=== PATIENT | female | born 1965 | race Caucasian/White ===

== ENCOUNTER 2017-02-16 12:56 | Emergency (ER) | payer OTHER, MEDICAID ==
--- NOTE | 2017-02-16 13:20 | EDPHY ---
H & P Stated Complaint: hx ulcers/saw gi 2 days ago/pain not managed at home/us today at [facility] HPI/ROS: HPI CHIEF COMPLAINT: Burning epigastric abdominal pain HISTORY OF PRESENT ILLNESS: This patient very pleasant 51-year-old female she presents emergency room with 1 week of epigastric abdominal pain that radiates into her throat is burning sensation. She tells me the pain is extreme 10 in 10. She tells me she has a history of ulcers. Over the past week she has had multiple episodes of vomiting she does tell me that she vomited coffee-ground emesis 1 time. She is tells me she has had some dark stools. No black stools. She states she has had an EGD and colonoscopy in the past with polyp removed from her colon, also had an ulcer on her EGD. She is due to have a EGD and colonoscopy this Tuesday. Was told if she has ongoing worsening abdominal pain nausea vomiting she should go to the emergency room. She also tells me that she was out L and had an ultrasound of right upper quadrant and was told that was normal. She now presents emergency room with severe epigastric abdominal pain with associated nausea. She denies shortness of breath. Denies chest pain the pain radiates into her throat burning in sensation. Past Medical History: Gastric ulcers, chronic back pain, rheumatoid arthritis, pneumothorax, rib fracture Past Surgical History: Denies any recent surgical history however did have lumbar fusion Social History: Denies daily use drugs alcohol tobacco products Family History: Noncontributory ROS REVIEW OF SYSTEMS: A comprehensive 10 point review of systems is otherwise negative aside from elements mentioned in the history of present illness. Exam Constitutional triage nursing summary reviewed, vital signs reviewed, awake/ alert. Eyes normal conjunctivae and sclera, EOMI, PERRLA. HENT normal inspection, atraumatic, moist mucus membranes, no epistaxis, neck supple/ no meningismus, no raccoon eyes. Respiratory clear to auscultation bilaterally, normal breath sounds, no respiratory distress, no wheezing. Cardiovascular rate normal, regular rhythm, no murmur, no edema, distal pulses normal. Gastrointestinal tender palpation epigastric and right upper quadrant, no peritoneal signs Genitourinary no CVA tenderness. Musculoskeletal no midline vertebral tenderness, full range of motion, no calf swelling, no tenderness of extremities, no meningismus, good pulses, neurovascularly intact. Skin pink, warm, & dry, no rash, skin atraumatic. Neurologic awake, alert and oriented x 3, AAOx3, moves all 4 extremities equally, motor intact, sensory intact, CN II-XII intact, normal cerebellar, normal vision, normal speech. Psychiatric normal mood/affect. Heme/Lymph/Immune no lymphadenopathy. Differential diagnosis includes but is not limited to and in no particular order : Bowel obstruction, appendicitis, gallbladder disease, diverticulitis, colitis , enteritis, perforated viscus, gastritis, GERD, esophagitis, urinary tract infection, pyelonephritis, kidney stones Medical Decision Making: Plan for this patient IV establishment, EKG, chest x- ray, cardiac/vascular sonographer, check abdominal blood work including LFTs and lipase, IV morphine for pain control IV Zofran for nausea, GI cocktail. Check stool sample for blood. Re-evaluation: 1458: Ultrasound of the right upper quadrant. The results of the study are negative for acute abnormality. I discussed the results of this study with the radiologist Dr. Hernandez EKG interpretation by me on record in [employer] system. Impression since EKG 1508, this is sinus rhythm rate of 75, otherwise unremarkable EKG no acute ischemia. Specifically no ST elevation, ST depression T-wave abnormalities prolonged intervals. ED x-ray chest one view: Negative for acute cardiopulmonary disease. 1520: This patient tells me that she feels much better after GI cocktail and IV morphine. She has greatly improved. She is requesting to be discharged home. She states the burning pain in her chest up to her throat is resolved after the GI cocktail. I do clinically on exam feel this patient has a soft jaundice possible gastritis and ulcer. She is due to have an EGD and colonoscopy on Tuesday. I do recommend that she continues this follow-up appointment. She already is on omeprazole and Zantac. I will give her limited supply of [place] for pain control. She understands return emergency room she develops worsening abdominal pain, fever, vomiting. She has not had any vomiting here no black tarry stool. H&H are stable. Vital signs stable. Afebrile. Blood work, x-ray, ultrasound reviewed and normal. Nonischemic EKG normal troponin normal D-dimer. Source: Patient - Personal History LMP (Females 10-55): Hysterectomy Current Tetanus/Diphtheria Vaccine: Yes Tetanus Vaccine Date: 2008 - Medical/Surgical History Hx Asthma: No Hx Chronic Respiratory Disease: No Hx Diabetes: No Hx Cardiac Disease: No Hx Renal Disease: No Hx Cirrhosis: No Hx Alcoholism: No Hx HIV/AIDS: No Hx Splenectomy or Spleen Trauma: No Other PMH: hysterectomy/gback pain/ulcers/ra - Social History Smoking Status: Never smoked Constitutional: Initial Vital Signs Temperature (C) 36.8 C 02/16/17 13:04 Heart Rate 92 02/16/17 13:04 Respiratory Rate 18 02/16/17 13:04 Blood Pressure 122/81 H 02/16/17 13:04 O2 Sat (%) 95 02/16/17 13:04 O2 Delivery Mode Room Air Allergies/Adverse Reactions: sumatriptan [From Imitrex] Allergy (Severe, Verified 02/16/17 13:02) Other-Enter Comments Home Medications: Medication Instructions Recorded Diazepam [Valium] 10 mg PO 09/29/11 morphINE [Roxanol] 0 mg PO 09/29/11 oxyCODONE IR [Oxy Ir] 30 mg PO 09/29/11 GABAPENTIN 02/16/17 Omeprazole 02/16/17 Ranitidine HCl 02/16/17 Medical Decision Making - Diagnostics Imaging Results: Imaging Impressions Chest X-Ray 02/16/17 13:30 Impression: No acute abnormality. - Data Points Laboratory Results: Laboratory Results 02/16/17 13:35 02/16/17 13:35 02/16/17 02/16/17 02/16/17 13:35 13:35 13:35 WBC 9.37 10^3/uL 10^3/uL (3.80-9.50) RBC 4.96 10^6/uL 10^6/uL (4.18-5.33) Hgb 15.2 g/dL g/dL (12.6-16.3) Hct 44.2 % % (38.0-47.0) MCV 89.1 fL fL (81.5-99.8) MCH 30.6 pg pg (27.9-34.1) MCHC 34.4 g/dL g/dL (32.4-36.7) RDW 12.3 % % (11.5-15.2) Plt Count 228 10^3/uL 10^3/uL (150-400) MPV 10.6 fL fL (8.7-11.7) Neut % (Auto) 71.5 % % (39.3-74.2) Lymph % (Auto) 20.1 % % (15.0-45.0) [place] % (Auto) 7.6 % % (4.5-13.0) Eos % (Auto) 0.2 % L % (0.6-7.6) Baso % (Auto) 0.3 % % (0.3-1.7) Nucleat RBC Rel Count 0.0 % % (0.0-0.2) Absolute Neuts (auto) 6.70 10^3/uL H 10^3/uL (1.70-6.50) Absolute Lymphs (auto) 1.88 10^3/uL 10^3/uL (1.00-3.00) Absolute Monos (auto) 0.71 10^3/uL 10^3/uL (0.30-0.80) Absolute Eos (auto) 0.02 10^3/uL L 10^3/uL (0.03-0.40) Absolute Basos (auto) 0.03 10^3/uL 10^3/uL (0.02-0.10) Absolute Nucleated RBC 0.00 10^3/uL 10^3/uL (0-0.01) Immature Gran % 0.3 % % (0.0-1.1) Immature Gran # 0.03 10^3/uL 10^3/uL (0.00-0.10) PT 13.1 SEC SEC (12.0-15.0) INR 1.00 (0.83-1.16) APTT 33.8 SEC SEC (23.0-38.0) D-Dimer < 0.27 ug/mLFEU ug/mLFEU (0.00-0.50) VBG Lactic Acid Sodium 139 mEq/L mEq/L (134-144) Potassium 3.9 mEq/L mEq/L (3.5-5.2) Chloride 107 mEq/L mEq/L (97-110) Carbon Dioxide 22 mEq/l mEq/l (22-31) Anion Gap 10 mEq/L mEq/L (8-16) BUN 9 mg/dL mg/dL (7-23) Creatinine 0.7 mg/dL mg/dL (0.6-1.0) Estimated GFR > 60 Glucose 118 mg/dL H mg/dL (70-100) Calcium 9.5 mg/dL mg/dL (8.5-10.4) Total Bilirubin 0.8 mg/dL mg/dL (0.1-1.4) Conjugated Bilirubin 0.3 mg/dL mg/dL (0.0-0.5) Unconjugated Bilirubin 0.5 mg/dL mg/dL (0.0-1.1) AST 19 IU/L IU/L (14-46) ALT 31 IU/L IU/L (9-52) Alkaline Phosphatase 77 IU/L IU/L (38-126) Troponin I < 0.012 ng/mL ng/mL (0-0.034) Total Protein 6.7 g/dL g/dL (6.3-8.2) Albumin 4.3 g/dL g/dL (3.5-5.0) Lipase 45.0 IU/L IU/L (23-300) 02/16/17 13:35 WBC RBC Hgb Hct MCV MCH MCHC RDW Plt Count MPV Neut % (Auto) Lymph % (Auto) [place] % (Auto) Eos % (Auto) Baso % (Auto) Nucleat RBC Rel Count Absolute Neuts (auto) Absolute Lymphs (auto) Absolute Monos (auto) Absolute Eos (auto) Absolute Basos (auto) Absolute Nucleated RBC Immature Gran % Immature Gran # PT INR APTT D-Dimer VBG Lactic Acid 1.5 mmol/L mmol/L (0.7-2.1) Sodium Potassium Chloride Carbon Dioxide Anion Gap BUN Creatinine Estimated GFR Glucose Calcium Total Bilirubin Conjugated Bilirubin Unconjugated Bilirubin AST ALT Alkaline Phosphatase Troponin I Total Protein Albumin Lipase Medications Given: Discontinued Medications Al Hydroxide/Mg Hydroxide (Maalox Susp) 30 ml PO ONCE ONE Stop: 02/16/17 13:30 Last Admin: 02/16/17 13:47 Dose: 30 ml Hyoscyamine Sulfate (Levsin, Hyomax-Sl) 0.25 mg PO ONCE ONE Stop: 02/16/17 13:30 Last Admin: 02/16/17 13:47 Dose: 0.25 mg Sodium Chloride (Ns) 1,000 mls @ 0 mls/hr IV ONCE ONE; Wide Open PRN Reason: Protocol Stop: 02/16/17 13:30 Last Admin: 02/16/17 13:48 Dose: 1,000 mls Lidocaine (Lidocaine 2% Viscous) 15 ml PO ONCE ONE Stop: 02/16/17 13:30 Last Admin: 02/16/17 13:47 Dose: 15 ml Morphine Sulfate (Morphine) 6 mg IVP EDNOW ONE Stop: 02/16/17 13:30 Last Admin: 02/16/17 13:47 Dose: 6 mg Ondansetron HCl (Zofran) 4 mg IVP EDNOW ONE Stop: 02/16/17 13:30 Last Admin: 02/16/17 13:48 Dose: 4 mg Departure - Departure Disposition: Home, Routine, Self-Care Clinical Impression: Gastritis Qualifiers: Gastritis type: unspecified gastritis Chronicity: acute Gastritis bleeding: without bleeding Qualified Code(s): K29.00 - Acute gastritis without bleeding Condition: Good Instructions: Gastritis (ED) Additional Instructions: 1. Return emergency room if she develops any worsening abdominal pain, fever, vomiting. 2. I do recommend he keep her appointment on Tuesday for your EGD and colonoscopy. 3. Eat a very bland diet no spicy fatty greasy foods. No coffee. No orange juice. Referrals: ISABELLA BHAKTA [Other] - As per Instructions Harris Reyes MD [[facility] Primary Care Provider] - As per Instructions
[2017-02-16] MEDS ORDERED: NS 1,000 ML IV ONE (13:29)
[2017-02-16] MEDS ORDERED: HYOSCYAMINE SULFATE 0.125 MG TAB PO ONE ×2 (13:29→15:20)
[2017-02-16] MEDS ORDERED: MAG HYDROX/AL HYDROX/SIMETH 30 ML UDCUP PO ONE ×2 (13:29→15:20)
[2017-02-16] MEDS ORDERED: ONDANSETRON 4 MG/2 ML VIAL IVP ONE (13:29)
[2017-02-16] MEDS ORDERED: LIDOCAINE 2% VISCOUS 15 ML UDCUP PO ONE ×2 (13:29→15:20)
[2017-02-16 13:42] LABS: % IMMATURE GRANULYOCYTES 0.3 % (0.0-1.1); ABSOLUTE IMMATURE GRANULOCYTES 0.03 10^3/uL (0.00-0.10); ADD DIFF? NO; ADD MORPH? NO; ADD SCAN? NO; ATYPICAL LYMPHOCYTE FLAG 10 (0-99); FRAGMENT RBC FLAG 0 (0-99); HEMATOCRIT 44.2 % (38.0-47.0); HEMOGLOBIN 15.2 g/dL (12.6-16.3); LEFT SHIFT FLG 0 (0-99); LIPEMIA HEMOLYSIS FLAG 90 (0-99); MEAN CELL HEMOGLOBIN 30.6 pg (27.9-34.1); MEAN CELL HEMOGLOBIN CONCENTR. 34.4 g/dL (32.4-36.7); MEAN CELL VOLUME 89.1 fL (81.5-99.8); MEAN PLATELET VOLUME 10.6 fL (8.7-11.7); PLATELET CLUMPS FLAG 0 (0-99); PLATELET COUNT 228 10^3/uL (150-400); RED BLOOD CELL COUNT 4.96 10^6/uL (4.18-5.33); RED CELL DISTRIBUTION WIDTH 12.3 % (11.5-15.2)
[2017-02-16 13:54] LABS: PROTIME(PATIENT) 13.1 SEC (12.0-15.0)
[2017-02-16 13:55] LABS: APTT 33.8 SEC (23.0-38.0)
[2017-02-16 14:12] LABS: ALANINE AMINOTRANSFERASE 31 IU/L (9-52); ALBUMIN 4.3 g/dL (3.5-5.0); ALKALINE PHOSPHATASE 77 IU/L (38-126); ANION GAP 10 mEq/L (8-16); ASPARTATE AMINOTRANSFERASE 19 IU/L (14-46); BILIRUBIN,TOTAL 0.8 mg/dL (0.1-1.4); BILIRUBIN-CONJUGATED 0.3 mg/dL (0.0-0.5); BILIRUBIN-UNCONJUGATED 0.5 mg/dL (0.0-1.1); CALCIUM 9.5 mg/dL (8.5-10.4); CARBON DIOXIDE 22 mEq/l (22-31); CHLORIDE 107 mEq/L (97-110); CREATININE 0.7 mg/dL (0.6-1.0); GLOMERULAR FILTRATION RATE > 60; GLUCOSE 118 mg/dL (70-100); POTASSIUM 3.9 mEq/L (3.5-5.2); SODIUM 139 mEq/L (134-144); TOTAL PROTEIN 6.7 g/dL (6.3-8.2)
[2017-02-16 14:23] LABS: TROPONIN I < 0.012 ng/mL (0-0.034)
--- NOTE | 2017-02-16 15:11 | CPEKG ---
Heart Rate: 75 RR Interval: 800 P-R Interval: 152 QRSD Interval: 72 QT Interval: 364 QTC Interval: 407 P Coats: 20 QRS Coats: 50 T Wave Coats: 28 EKG Severity - BORDERLINE ECG - EKG Impression: SINUS RHYTHM EKG Impression: LOW VOLTAGE THROUGHOUT Electronically Signed By: Israel Duque 16-Feb-2017 20:01:12
[2017-02-16] MEDS ORDERED: HYDROmorphONE/DILAUDID 1 MG/ML SYR IVP ONE (15:16)
[2017-02-16 16:05] VITALS: BP 122/89; PULSE 89; RESP 20; TEMP 98.1; O2SAT 96
== END 2017-02-16 16:05 | disposition home or self-care (01) ==
DX: K29.00 Acute gastritis without bleeding (principal); Z90.710 Acquired absence of both cervix and uterus
CPT/HCPCS: 71010; 76705; 93005; 96361; 96374; 96375; 99285; J1170; J2405

== ENCOUNTER 2017-02-18 06:49 | Day surgery (SDC) | payer OTHER, MEDICAID ==
[2017-02-18] MEDS ORDERED: LR 1,000 ML IV ONE (07:13)
--- NOTE | 2017-02-18 08:01 | PDANEPAE ---
ANE History of Present Illness 51 yo F with N/V, abdominal pain, here for EGD and COLO ANE Past Medical History - Cardiovascular History Hx Hypertension: No Hx Arrhythmias: No Hx Chest Pain: No Hx Coronary Artery / Peripheral Vascular Disease: No Hx CHF / Valvular Disease: No Hx Palpitations: No - Pulmonary History Hx COPD: No Hx Asthma/Reactive Airway Disease: No Hx Recent Upper Respiratory Infection: No Hx Oxygen in Use at Home: No - Neurologic History Hx Cerebrovascular Accident: No Hx Seizures: No Hx Dementia: No - Endocrine History Hx Diabetes: No - Renal History Hx Renal Disorders: No - Liver History Hx Hepatic Disorders: No - Neurological & Psychiatric Hx Hx Neurological and Psychiatric Disorders: No - Cancer History Hx Cancer: No - Congenital Disorder History Hx Congenital Disorders: No - GI History Hx Gastrointestinal Disorders: Yes - Chronic Pain History Chronic Pain: Yes (BACK PAIN, LEGS, HIPS, HANDS) ANE Review of Systems - Exercise capacity Exercise capacity: >=4 METS METS (RN): 4 METS - Systems Gastrointestinal: Reports: vomitting, abdominal pain, nausea Muscolosketal: Reports: joint pain, other (osteo/rheumatoid arthritis) ANE Patient History - Allergies Allergies/Adverse Reactions: sumatriptan [From Imitrex] Allergy (Severe, Verified 02/16/17 13:02) Other-Enter Comments divalproex sodium [From Depakote] Allergy (Verified 02/18/17 07:29) tramadol Allergy (Verified 02/18/17 07:29) - Home Medications Home medications: home medication list seen and reviewed Home Medications: Diazepam [Valium] 09/29/11 [Last Taken 02/16/17] morphINE [Roxanol] 0 mg PO 09/29/11 [Last Taken 02/18/17 03:00] oxyCODONE IR [Oxy Ir] 09/29/11 [Last Taken 02/17/17] GABAPENTIN 02/16/17 [Last Taken 02/17/17 21:00] Omeprazole 02/16/17 [Last Taken 02/17/17] Ranitidine HCl 02/16/17 [Last Taken 02/17/17 21:00] Zofran 02/17/17 [Last Taken 02/17/17] Hormone Pill 02/18/17 [Last Taken 02/18/17] - NPO status NPO Since - Liquids (Date): 02/17/17 NPO Since - Liquids (Time): 23:00 NPO Since - Solids (Date): 02/16/17 NPO Since - Solids (Time): 15:00 - Anes Hx Anes Hx: no prior problems - Smoking Hx Smoking Status: Former smoker - Family Anes Hx Family Anes Hx: none Family Hx Anesthesia Complications: NEG ANE Labs/Vital Signs - Vital Signs Blood Pressure: 106/77 Heart Rate: 69 Respiratory Rate: 16 O2 Sat (%): 95 Height: 149.86 cm Weight: 68.039 kg ANE Physical Exam - Airway Neck exam: FROM Mallampati Score: Class 3 Mouth exam: normal dental/mouth exam - Pulmonary Pulmonary: no respiratory distress, clear to auscultation - Cardiovascular Cardiovascular: regular rate and rhythym, no murmur, rub, or gallop - ASA Status ASA Status: II ANE Anesthesia Plan Anesthesia Plan: MAC
[2017-02-18] MEDS ORDERED: PROPOFOL/EMULSION 500 MG/50 ML BOTTLE IV ONE (08:04)
[2017-02-18] MEDS ORDERED: ONDANSETRON 4 MG/2 ML VIAL IVP PRN (08:07)
[2017-02-18] MEDS ORDERED: ACETAMINOPHEN 500 MG TAB PO PRN (08:07)
[2017-02-18] MEDS ORDERED: NALOXONE HCL 0.4 MG/ML INJ IVP PRN (08:07)
--- NOTE | 2017-02-18 08:11 | PDGENHP ---
History & Physical Chief Complaint: abdominal pain, nausea, vomiting, blood in stools. History of Present Illness: 51 year old female presents for evaluation of abdominal pain- epigastric, with nausea and vomiting. Food makes symptoms worse. No relief with PPI. Also noted blood in stools. Has had prior colonoscopic evaluation in 2016. Pertinent Past, Social, Family History: SOHx: Former smoker. FamHx: colonic polyps. PMHx: chronic pain Relevant Physical Exam: HEENT: anicteric. CV: RRR + s1s2. Lungs: CTAB no w/r/ r. Abd: soft, nt, +bs. No g/r/. Ext: No c/c/e Cardiorespiratory Assessment: ASA 3
--- NOTE | 2017-02-18 08:50 | POSTOPPROG ---
Post Op Note Date of Operation: 02/18/17 Surgeon: Ted Duggan Anesthesia: IV Sedation Pre-op Diagnosis: nausea, abdominal pain, blood in stools Post-op Diagnosis: gastritis, diverticular disease, hemorrhoids Indication: abdominal pain, blood in stools Procedure: EGD with biopsy, colonoscopy with biopsy Findings: rectal polyp , divericulosis, hemorrhoids Inf/Abcess present in the surg proc area at time of surgery?: No EBL: Minimal
[2017-02-18] MEDS ORDERED: NS 500 ML IV SCH (09:00)
--- NOTE | 2017-02-18 09:15 | GPN ---
[f rep st] PROCEDURE NOTE DATE OF PROCEDURE: 02/18/2017 PROCEDURE PERFORMED: Esophagogastroduodenoscopy with biopsy. INDICATION: The patient is a 51-year-old female, who presents for evaluation of nausea, vomiting, odynophagia, as well as epigastric abdominal pain. She also had previous complaints of melenic stools. She presents for further evaluation. CONSENT: Risks, benefits, and alternatives of the procedure were discussed in detail with the patient. Risk of infection, bleeding, perforation, and sedation were discussed. All questions answered. Informed was obtained. MEDICATIONS: Propofol. Please see Anesthesiology record for details. ESTIMATED BLOOD LOSS: Insignificant. ESOPHAGOGASTRODUODENOSCOPY EXAMINATION: The Olympus upper endoscope was inserted into the mouth and advanced to the esophagus. The proximal, mid, and distal esophagus were normal in appearance. Biopsies were taken of the mid esophagus on the way out to rule out eosinophilic esophagitis. The stomach was entered and closely examined, including retroflexed views of the angularis cardia and fundus. She was noted to have a hiatal hernia. The mucosa in the antrum and body was erythematous in a patchy distribution. Biopsies were taken. The duodenal bulb and 2nd portion of the duodenum were normal in appearance. Biopsies were taken to rule out celiac sprue. IMPRESSION: 1. Biopsies taken to rule out eosinophilic esophagitis. 2. Hiatal hernia. 3. Gastritis, status post biopsy. 4. Biopsies taken to rule out eosinophilic esophagitis. RECOMMENDATIONS: 1. Follow up on biopsy results. 2. Proceed with colonoscopic evaluation. Copy requested to: primary care doctor /[id number]/MODL MTDD
--- NOTE | 2017-02-18 09:30 | GPN ---
[f rep st] PROCEDURE NOTE DATE OF PROCEDURE: 02/18/2017 PROCEDURE: Colonoscopy with biopsy. INDICATION: The patient is a 51-year-old female, who presents with complaints of hematochezia as well as melenic stools. She presents for further evaluation. CONSENT: Risks, benefits, and alternatives of the procedure were discussed in great detail with the patient. Risk of infection, bleeding, perforation, and sedation were discussed. All questions answered and informed consent was obtained. MEDICATIONS: Propofol. Please see Anesthesia record for details. ESTIMATED BLOOD LOSS: Insignificant. COLONOSCOPIC EVALUATION: A rectal exam was performed and large internal hemorrhoids were appreciated. The Olympus adult colonoscope was introduced nto the rectum and advanced to the cecum where the ileocecal valve and appendiceal orifice were seen. The terminal ileum was intubated and was normal in appearance. The quality of prep was good. The colonic mucosa was carefully examined on both insertion and withdrawal of the scope. Scattered diverticulosis was noted in the transverse colon, descending colon, and sigmoid colon. No mass lesion was noted. A 2 mm rectal polyp was removed by biopsy forceps. IMPRESSION: 1. Rectal polyp status post excisional biopsy. 2. Diverticulosis. 3. Internal hemorrhoids. I suspect that her bright red blood is secondary to her hemorrhoids. RECOMMENDATION: 1. Follow up in the office in 4 weeks with ERIC Duran. 2. Fiber supplementation. /[id number]/MODL MTDD
[2017-02-18 09:52] VITALS: RESP 16; O2SAT 94
[2017-02-18 10:26] VITALS: PULSE 84; TEMP 98.2
[2017-02-18 10:43] VITALS: BP 125/76
--- NOTE | 2017-02-18 12:20 | POSTANESTH ---
Post Anesthetic Evaluation Cardiovascular Status: Normal, Stable, Similar to Pre-Op Cond Respiratory Status: Normal, Stable, Similar to Pre-op Cond. Level of Consciousness/Mental Status: Can Participate in Eval, Alert and Oriented Pain Control: Adequate, Prn Tx Ordered Nausea/Vomiting Control: Adequate, Prn Tx Ordered Complications Possibly Related to Anesthesia: None Noted
== END 2017-02-18 10:59 | disposition home or self-care (01) ==
LOC: FSGY 06:49
PROVIDERS: ATTEND Internal Medicine Gastroenterology
PROC: 0DB68ZX Excision of Stomach, Via Natural or Artificial Opening Endoscopic, Diagnostic (ICD-10-PCS; principal; 2017-02-18 08:30)
PROC: 0DB28ZX Excision of Middle Esophagus, Via Natural or Artificial Opening Endoscopic, Diagnostic (ICD-10-PCS; principal; 2017-02-18 08:30)
PROC: 0DB98ZX Excision of Duodenum, Via Natural or Artificial Opening Endoscopic, Diagnostic (ICD-10-PCS; principal; 2017-02-18 08:30)
PROC: 0DBE8ZX Excision of Large Intestine, Via Natural or Artificial Opening Endoscopic, Diagnostic (ICD-10-PCS; principal; 2017-02-18 08:30)
DX: K64.8 Other hemorrhoids (principal); K57.30 Diverticulosis of large intestine without perforation or abscess without bleeding; K20.9 Esophagitis, unspecified; K63.5 Polyp of colon; K44.9 Diaphragmatic hernia without obstruction or gangrene; Z87.891 Personal history of nicotine dependence
CPT/HCPCS: J2704